=== PATIENT | female | born 1985 | race African-American/Black ===

== ENCOUNTER 2017-06-28 12:28 | Emergency (ER) | payer OTHER ==
[~2017-06-28] VITALS: Ht 165.1 cm; Wt 127.6 kg
[2017-06-28 12:58] LABS: HEMATOCRIT 27.9 % (36.0-46.0); MCH 25.2 PG (29.0-34.0); MCHC 32.3 G/DL (30.0-36.0); MCV 78.2 FL (83-99); PLATELET COUNT 373 K/uL (156-360); RBC DIS.WIDTH-CV 17.5 % (11.8-14.6); RBC DIS.WIDTH-SD 49.5 % (39-53); RED BLOOD COUNT 3.57 M/uL (3.80-5.20); WHITE BLOOD COUNT 7.7 K/uL (4.1-10.2)
[2017-06-28 13:07] LABS: ALBUMIN 4.5 g/dL (3.2-4.8); CHLORIDE 102 mEq/L (99-109); POTASSIUM 4.2 mEq/L (3.7-5.4); SODIUM 139 mEq/L (136-147)
[2017-06-28 13:09] LABS: GLUCOSE 93 mg/dL (70-99); TOTAL PROTEIN 8.2 g/dL (6.4-8.3)
[2017-06-28 13:11] LABS: TOTAL BILIRUBIN 0.4 mg/dL (0.0-1.0)
[2017-06-28 13:13] LABS: ALKALINE PHOSPHATASE 67 IU/L (3-129); CREATININE 1.3 mg/dL (0.6-1.3)
[2017-06-28 13:14] LABS: UREA NITROGEN (BUN) 10 mg/dL (9-23)
[2017-06-28 13:15] LABS: AST (GOT) 29 IU/L (2-34)
[2017-06-28 13:16] LABS: ALT (GPT) 23 IU/L (3-49)
[2017-06-28 13:21] LABS: QUANTITATIVE HCG < 4.0 MIU/ML
[2017-06-28 13:22] LABS: GFR ESTIMATE (CALCULATED) 50 mL/min/
[2017-06-28 13:26] LABS: APPEARANCE SL.HAZY ((CLEAR)); BILIRUBIN NEGATIVE; BLOOD NEGATIVE; COLOR STRAW ((YELLOW)); GLUCOSE (STRIP) NEGATIVE; KETONES NEGATIVE; LEUKOCYTES TRACE; NITRITE NEGATIVE; PROTEIN (STRIP) NEGATIVE; SPECIFIC GRAVITY 1.013 (1.000-1.030); UROBILINOGEN 0.2 MG/DL (0.2-1.0)
[2017-06-28 13:31] VITALS: BP 127/86
[2017-06-28 13:32] LABS: BACTERIA RARE /HPF; EPITHELIAL CELLS 1+ /HPF; MUCUS TRACE /LPF; RED BLOOD CELLS 0-5 /HPF (0-5); UCUL ADDED? NO; WHITE BLOOD CELLS 0-5 /HPF (0-5)
== END 2017-06-28 15:11 | disposition left against medical advice (07) ==
LOC: EME 12:28
DX: R10.31 Right lower quadrant pain (principal); Z87.442 Personal history of urinary calculi; Z90.49 Acquired absence of other specified parts of digestive tract
CPT/HCPCS: 74177; 80053; 81003; 84702; 85027; J1885; J7030